=== PATIENT | female | born 1940 | race Caucasian/White ===

== ENCOUNTER 2017-02-27 12:18 | Inpatient (IN) | payer BC ==
--- NOTE | ~2017-02-27 | CN ---
Consultation Report [facility] [address] [place]. [address] NAME: CHERYL ANAYA : 40 STATUS : ADM Ronald PAT#: [id number] AGE: 76 ADM/REG DATE : 02/27/17 MR#: [id number] REPORT SERV DATE: 03/01/17 DICTATED BY: JESUS CHATMAN III DATE: 02/28/17 REPORT STATUS : Draft TRANSCRIBED BY: MODAngelita DATE: 02/28/17 CONSULTATION DATE OF CONSULTATION: 02/28/2017 REASON FOR CONSULTATION: Anemia. HISTORY OF PRESENT ILLNESS: Ms. Anaya is a 76-year-old female with a sudden onset of profound fatigue and dizziness and weakness. She presented to the emergency department and was found to have a new anemia with a hemoglobin of around 6.4. She was admitted for further workup and care. Her symptoms have been ongoing for just less than one day. She has not had symptoms like this before. She is now feeling better post-transfusion. She has no prior bleeding history or history of anemia. PAST MEDICAL HISTORY: 1. Hypertension. 2. Diabetes. 3. Hyperlipidemia. FAMILY HISTORY: Negative for any heart disease or blood disorder that she is aware of. SOCIAL HISTORY: She does live alone. There is no current tobacco or alcohol abuse. HOME MEDICATION LIST: Reviewed and per the home med list. ALLERGIES: THERE ARE NO KNOWN DRUG ALLERGIES. REVIEW OF SYSTEMS: A comprehensive review of systems was performed and is negative unless noted in the HPI. PHYSICAL EXAMINATION: VITAL SIGNS: Blood pressure is 117/95, temperature is 97.5, pulse is 72, and respiratory rate is 23. GENERAL: This is a well-developed, a well-nourished female in no acute distress. EYES: Pupils are round and reactive to light with mild icterus. NECK: Supple with no masses or thyroid enlargement. No JVD. CARDIOVASCULAR: Regular rate and rhythm with no audible murmurs, gallops, or rubs. LUNGS: Clear to auscultation bilaterally with normal respiratory effort. ABDOMEN: Soft, nondistended, nontender with no noted hepatosplenomegaly. SKIN: Warm and dry with no jaundice noted. LYMPHATIC: Negative for any cervical, supraclavicular or infraclavicular, or axillary lymphadenopathy. PSYCH: She is alert and oriented, and comprehends our conversation with normal judgment and affect. Consultation Report [facility] [address] [place]. [address] NAME: CHERYL ANAYA : 40 STATUS : ADM Ronald PAT#: [id number] AGE: 76 ADM/REG DATE : 02/27/17 MR#: [id number] REPORT SERV DATE: 03/01/17 DICTATED BY: JESUS CHATMAN III DATE: 02/28/17 REPORT STATUS : Draft TRANSCRIBED BY: MODL DATE: 02/28/17 LABORATORY DATA: Her admission labs were reviewed. Her CBC did improve from 5.8 to 8.8 after transfusion. Her MCV is quite high. Her white blood cell count is elevated. Her chemistry revealed an elevated total bilirubin at 2.8, and LDH was also elevated at 778. Her peripheral smear was personally reviewed. The red blood cells, they were microcytic and spherocytes present for the majority of the cells. There were some normochromic normocytic cells present though. They were 1+ and rare fragments. Her reticulocyte count was quite elevated in the 10% to 15% range with nucleated red blood cells. White blood cells had hypersegmented neutrophils, platelets had normal morphology. 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 We will start her on folic acid at 5 mg daily. Also start prednisone at 1 mg/kg. We will check PNH. We will continue to follow her while she is an inpatient and arrange followup upon discharge. CARMEN/JESSICA Jesus Chatman III, M.D. / [id number] CC: Stephanie Goldsmith M.D.
--- NOTE | ~2017-02-27 | HP ---
History And Physical [place] [id number] [facility] [address]. [address] NAME: CHERYL ANAYA : 40 STATUS : ADM Ronald PAT#: [id number] AGE: 76 ADM/REG DATE : 02/27/17 MR#: [id number] REPORT SERV DATE: 02/28/17 DICTATED BY: MARLO GIANG DATE: 02/27/17 REPORT STATUS : Draft TRANSCRIBED BY: MODAngelita DATE: 02/27/17 DATE OF ADMISSION: 02/27/2017 TIME: 08:30 p.m. HISTORY: The patient is a 76-year-old female patient of Dr. Charmaine Ewing'jesús with chronic diagnoses of DM type 2 requiring insulin, hypertension, hypercholesterolemia, who presented to the ER late this morning with complaints of dizziness, shortness of breath, and fatigue onset as of today. She has not recall these symptoms yesterday, but is fairly sedentary. She has noted no nausea, vomiting, fever, chills, abdominal pain, cramping, melena, or bright red blood per rectum. She has had no chest pain. No palpitations. No recent medicine changes. She uses no non-steroidal other than aspirin and does not take Plavix or similar anti-platelet drugs. She was last seen in the office on 12/24/2016, and at that time, had a BUN and creatinine of 17 and 0.76 with a potassium of 3.5, hemoglobin A1c 6.6, H and H of 14.3 and 40.8 with a white count of 9800, and MCV of 82.6 (see labs below). 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 No history of GI bleeding, dyspepsia, or anemia. REVIEW OF SYSTEMS: Negative for weight loss, dyspepsia, anorexia. PHYSICAL EXAMINATION: VITAL SIGNS: Afebrile, BP initially 192/81, recheck 140/80 by me, pulse 84 and regular. GENERAL: The patient is pale but alert and oriented to person, place, and time. Comfortable. CHEST: Clear bilaterally anteriorly and posteriorly. CV: Regular rate and rhythm with no murmurs, gallops, or rubs. ABDOMEN: Soft, mildly protuberant but nontender with normal bowel sounds. No organomegaly. RECTAL: Per ER, heme negative. NEUROLOGIC: Nonfocal. LABORATORY DATA: Peripheral CBC shows marked abnormalities in both red cell and white cell lines. White count is 19,000 with 65% segs, 3% bands, 22% lymphocytes, H and H 6.4 and 19.4 with macrocytosis. MCV of 121.3. MCH of 40, MCHC of 33, RDW elevated at 23.9, platelet count 344,000. Manual differential shows macrocytosis polychromasia, some mild basophilic stippling, and adequate platelets. I called hematology lab and asked them to review the slides specifically for schistocytes or other signs of hemolysis. It was reported to me after careful review that there were no schistocytes and no evidence of hemolysis with adequate platelets and findings as outlined above. Electrolytes: Sodium 143, potassium 2.5, chloride 104, bicarb 27, BUN and creatinine 31 and 0.9, magnesium 2.4, (40 mEq of potassium given in the ER). No followup potassium as of yet. D-dimer was abnormal at 2.12, though not unexpected with gross hematological abnormalities, PT and PTT within normal limits. A CTA of the chest was done in the ER due to her abnormal D-dimer. This was negative for pulmonary emboli or other pathology. EKG normal sinus rhythm with no ST elevation. History And Physical [address] [address] NAME: CHERYL ANAYA : 40 STATUS : ADM Ronald PAT#: [id number] AGE: 76 ADM/REG DATE : 02/27/17 MR#: [id number] REPORT SERV DATE: 02/28/17 DICTATED BY: MARLO GIANG DATE: 02/27/17 REPORT STATUS : Draft TRANSCRIBED BY: MODL DATE: 02/27/17 IMPRESSION: 1. Profound macrocytic anemia with high red cell distribution width. Possibilities include gastrointestinal blood loss with early red cells migrating from bone marrow versus other causes of microcytic anemia. Her elevated BUN suggests occult gastrointestinal blood loss. There is no evidence of such at least currently with heme testing in the ER. There is also no evidence of TTP or hemolysis. 2. Hypokalemia, replete to 40 mEq in the ER, needs follow up, on HCTZ. 3. Diabetes mellitus, type 2, requiring insulin, stable. 4. Hypertension, elevated initially, but not an issue currently. PLAN: The patient has been admitted. Transfusion of two units is proceeding. H and H will be followed closely with first H and H at two hours after second unit complete with further blood replacement if needed. Potassium followup needed with further repletement as indicated. Level [address] insulin in place along with her usual insulin. Regular diet tonight with continued Hemoccult testing. Unless we can see occult GI blood loss documented, we will hold on GI consultation, deferred to Dr. Ewing. Losartan HCT, and amlodipine will be held until and unless needed. Further evaluation will be based on her initial response to red cell replacement and potassium replacement. I discussed the situation in detail with the patient, and will detail Dr. Ewing in the morning, who will assume her care from their side. CC/MODL Marlo Giang M.D. / [id number] CC: Stephanie Goldsmith M.D.
[~2017-02-27 12:18] MED LIST: ADVAIR; ASAB PO; DIABETA5 PO; DIOVAN HC2 PO; DITRO5 PO; NORV5 PO; ZOCOR40 PO
[2017-02-27] MEDS ORDERED: ZOCOR40 PO (12:58)
[2017-02-27] MEDS ORDERED: TOUJEO SC (12:59)
[2017-02-27] MEDS ORDERED: DITRO5 PO (13:00)
[2017-02-27] MEDS ORDERED: ZANAFLEX2 MG PO (13:00)
[2017-02-27] MEDS ORDERED: HYZAAR 100/25 T1 TAB PO (13:01)
[2017-02-27] MEDS ORDERED: NORV10 PO (13:01)
[2017-02-27] MEDS ORDERED: ASAB PO (13:03)
[2017-02-27 13:19] LABS: BASOPHILS 0.3 %; BASOPHILS ABSOLUTE 0.05 10/3/uL (0.0-0.16); EOSINOPHILS 2.6 %; IMMATURE GRANULOCYTES 0.8 %; LYMPHOCYTES 22.3 %; LYMPHOCYTES ABSOLUTE 4.25 10/3/uL (0.67-4.30); MEAN PLATELET VOLUME 10.4 fL (9.2-13.0); MONOCYTES 5.2 %; MONOCYTES ABSOLUTE 0.99 10/3/uL (0.21-1.20); NEUTROPHILS 68.8 %; NEUTROPHILS ABSOLUTE 13.09 10/3/uL (2.02-8.40); NUCLEATED RED BLOOD CELLS 6.7 /100WBC (0-0)
[2017-02-27 13:20] LABS: INTERNATIONAL NORMAL RATI 1.1 UNITS (-); PARTIAL THROMBO TIME 23.2 SEC (22.5-37.2); PROTIME (NOT ORD) 13.8 SEC (12.0-14.5)
[2017-02-27 13:23] LABS: D-DIMER QUANTITATIVE 2.12 ug/mLFEU (< 0.50)
[2017-02-27 13:26] LABS: ER CBC TAT 0 Hrs 19 Mins; HEMATOCRIT 19.4 % (36.0-48.0); HEMOGLOBIN 6.4 g/dL (12.0-16.0); MEAN CORPUSCULAR VOLUME 121.3 fL (80-100); PLATELET COUNT 344 10/3/uL (150-400); RBC DISTRIBUTION WIDTH 23.9 % (12.0-16.0)
[2017-02-27 13:27] LABS: IMMATURE GRANULOCYTES ABSOLUTE 0.15 10/3/uL (0.0-0.11); MANUAL DIFF NO %
[2017-02-27 13:30] LABS: CALCIUM, SERUM 9.2 MG/DL (8.5-10.4); CHEST PAIN PROFILE TAT 0 Hrs 23 Mins; CHLORIDE, SERUM 104 MMOL/L (96-112); CO2 (CARBON DIOXIDE) 27 MMOL/L (24-34); CREATININE 0.91 MG/DL (0.55-1.02); GFR AFRICAN AMERICAN 71 ML/MIN (>=60); GFR NON AFRICAN AMERICAN 61 ML/MIN (>=60); SODIUM, SERUM 143 MMOL/L (135-148); TROPONIN I <0.02 NG/ML (<0.05)
[2017-02-27 13:31] LABS: BAND NEUTROPHILS 3 %; BASOPHILS 1 %; BASOPHILS ABSOLUTE (CALC) 0.19 10/3/uL (0.0-0.16); BUN (BLOOD UREA NITROGEN) 31 MG/DL (6-23); EOSINOPHILS 6 %; EOSINOPHILS ABSOLUTE (CALC) 1.14 10/3/uL (0.0-0.53); ER DIFF TAT 0 Hrs 24 Mins; GLUCOSE, SERUM 124 MG/DL (60-99); LYMPHOCYTES 22 %; LYMPHOCYTES ABSOLUTE (CALC) 4.18 10/3/uL (0.67-4.30); MACROCYTES 4+ (>50/OIF) (0-5/OIF); MONOCYTES 3 %; MONOCYTES ABSOLUTE (CALC) 0.57 10/3/uL (0.21-1.20); NEUTROPHILS ABSOLUTE (CALC) 12.92 10/3/uL (2.02-8.40); PLATELET ESTIMATE ADQ (ADEQUATE); POTASSIUM, SERUM 2.5 MMOL/L (3.5-5.3); SEGMENTED NEUTROPHIL (0) 65 %; TOTAL NUCLEATED CELLS 100
[2017-02-27 13:32] LABS: POLYCHROMASIA 2+ (5-10/OIF) (0-1/OIF)
[2017-02-27 13:33] LABS: BASOPHILIC STIPPLING 1+ (2-5/OIF) (0-1/OIF)
[2017-02-27 21:42] LABS: BUN (BLOOD UREA NITROGEN) 26 MG/DL (6-23); CALCIUM, SERUM 8.2 MG/DL (8.5-10.4); CHLORIDE, SERUM 107 MMOL/L (96-112); CO2 (CARBON DIOXIDE) 26 MMOL/L (24-34); GFR AFRICAN AMERICAN 83 ML/MIN (>=60); GFR NON AFRICAN AMERICAN 72 ML/MIN (>=60); GLUCOSE, SERUM 132 MG/DL (60-99); POTASSIUM, SERUM 2.7 MMOL/L (3.5-5.3); SODIUM, SERUM 143 MMOL/L (135-148)
[2017-02-27 21:43] LABS: HEMATOCRIT 18.1 % (36.0-48.0); HEMOGLOBIN 5.8 g/dL (12.0-16.0)
[2017-02-28 07:39] LABS: BASOPHILS 0.1 %; BASOPHILS ABSOLUTE 0.02 10/3/uL (0.0-0.16); EOSINOPHILS 2.1 %; EOSINOPHILS ABSOLUTE 0.33 10/3/uL (0.0-0.53); IMMATURE GRANULOCYTES 0.7 %; IMMATURE GRANULOCYTES ABSOLUTE 0.11 10/3/uL (0.0-0.11); LYMPHOCYTES 20.6 %; LYMPHOCYTES ABSOLUTE 3.16 10/3/uL (0.67-4.30); MEAN CORPUS HGB CONC 33.7 g/dL (32.0-36.0); MONOCYTES 5.8 %; MONOCYTES ABSOLUTE 0.89 10/3/uL (0.21-1.20); NEUTROPHILS 70.7 %; NEUTROPHILS ABSOLUTE 10.85 10/3/uL (2.02-8.40); NUCLEATED RED BLOOD CELLS 3.9 /100WBC (0-0); PLATELET COUNT 250 10/3/uL (150-400); RBC DISTRIBUTION WIDTH 27.7 % (12.0-16.0); WHITE BLOOD CELLS 15.4 10/3/uL (4.5-10.5)
[2017-02-28 07:40] LABS: HEMATOCRIT 26.1 % (36.0-48.0); HEMOGLOBIN 8.8 g/dL (12.0-16.0); MANUAL DIFF NO %; MEAN CORPUSCULAR HEMOGLOB 35.9 pg (26.0-34.0); MEAN CORPUSCULAR VOLUME 106.5 fL (80-100); RED CELL COUNT 2.45 10/6/uL (4.0-5.6)
[2017-02-28 07:43] LABS: A/G RATIO 1.2 (0.7-1.9); ALBUMIN 3.6 G/DL (3.5-5.0); ALKALINE PHOSPHATASE 74 U/L (45-117); BUN (BLOOD UREA NITROGEN) 25 MG/DL (6-23); CALCIUM, SERUM 8.5 MG/DL (8.5-10.4); CHLORIDE, SERUM 111 MMOL/L (96-112); CO2 (CARBON DIOXIDE) 25 MMOL/L (24-34); CREATININE 0.74 MG/DL (0.55-1.02); GFR AFRICAN AMERICAN 91 ML/MIN (>=60); GFR NON AFRICAN AMERICAN 79 ML/MIN (>=60); GLUCOSE, SERUM 61 MG/DL (60-99); POTASSIUM, SERUM 3.3 MMOL/L (3.5-5.3); SGOT(AST) 67 U/L (5-40); SGPT(ALT) 33 U/L (5-65); SODIUM, SERUM 145 MMOL/L (135-148); TOTAL BILIRUBIN 2.8 MG/DL (0-1.2); TOTAL PROTEIN 6.6 G/DL (6.0-8.5)
[2017-02-28 08:14] LABS: MACROCYTES 1+ (5-10/OIF) (0-5/OIF); POLYCHROMASIA 2+ (5-10/OIF) (0-1/OIF)
[2017-02-28 08:15] LABS: PLATELET ESTIMATE ADQ (ADEQUATE)
[2017-02-28 16:55] LABS: HEMATOCRIT 34.8 % (36.0-48.0)
[2017-03-01 08:22] LABS: BASOPHILS 0.1 %; BASOPHILS ABSOLUTE 0.02 10/3/uL (0.0-0.16); EOSINOPHILS 4.2 %; EOSINOPHILS ABSOLUTE 0.61 10/3/uL (0.0-0.53); HEMATOCRIT 32.3 % (36.0-48.0); IMMATURE GRANULOCYTES 0.4 %; IMMATURE GRANULOCYTES ABSOLUTE 0.06 10/3/uL (0.0-0.11); LYMPHOCYTES 29.3 %; LYMPHOCYTES ABSOLUTE 4.24 10/3/uL (0.67-4.30); MEAN CORPUS HGB CONC 34.1 g/dL (32.0-36.0); MEAN CORPUSCULAR HEMOGLOB 34.8 pg (26.0-34.0); MEAN PLATELET VOLUME 10.5 fL (9.2-13.0); MONOCYTES 5.1 %; MONOCYTES ABSOLUTE 0.74 10/3/uL (0.21-1.20); NEUTROPHILS 60.9 %; NEUTROPHILS ABSOLUTE 8.81 10/3/uL (2.02-8.40); NUCLEATED RED BLOOD CELLS 0.6 /100WBC (0-0); PLATELET COUNT 246 10/3/uL (150-400); RBC DISTRIBUTION WIDTH 26.1 % (12.0-16.0); WHITE BLOOD CELLS 14.5 10/3/uL (4.5-10.5)
[2017-03-01 08:23] LABS: MANUAL DIFF NO %; MEAN CORPUSCULAR VOLUME 102.2 fL (80-100); RED CELL COUNT 3.16 10/6/uL (4.0-5.6)
[2017-03-01 08:29] LABS: A/G RATIO 1.1 (0.7-1.9); ALBUMIN 3.7 G/DL (3.5-5.0); ALKALINE PHOSPHATASE 75 U/L (45-117); CHLORIDE, SERUM 107 MMOL/L (96-112); CO2 (CARBON DIOXIDE) 25 MMOL/L (24-34); CREATININE 0.77 MG/DL (0.55-1.02); GFR AFRICAN AMERICAN 87 ML/MIN (>=60); GFR NON AFRICAN AMERICAN 75 ML/MIN (>=60); GLOBULIN 3.3 G/DL (2.5-4.1); GLUCOSE, SERUM 68 MG/DL (60-99); POTASSIUM, SERUM 3.2 MMOL/L (3.5-5.3); SGOT(AST) 38 U/L (5-40); SGPT(ALT) 27 U/L (5-65); SODIUM, SERUM 142 MMOL/L (135-148); TOTAL BILIRUBIN 2.5 MG/DL (0-1.2)
[2017-03-01 08:33] LABS: BUN (BLOOD UREA NITROGEN) 20 MG/DL (6-23); CALCIUM, SERUM 8.7 MG/DL (8.5-10.4)
[2017-03-01 08:34] LABS: PLATELET ESTIMATE ADQ (ADEQUATE)
[2017-03-01 08:35] LABS: MACROCYTES 1+ (5-10/OIF) (0-5/OIF)
[2017-03-01 08:37] LABS: POLYCHROMASIA 1+ (2-5/OIF) (0-1/OIF)
[2017-03-01] MEDS ORDERED: P20 PO (09:24)
[2017-03-01] MEDS ORDERED: FOLIC PO (09:25)
[2017-06-04] MEDS ORDERED: ZOCOR40 PO (10:30)
[2017-06-04] MEDS ORDERED: NORV10 PO (10:31)
[2017-06-04] MEDS ORDERED: HYZAAR 100/25 T1 TAB PO (10:31)
[2017-06-04] MEDS ORDERED: TOUJEO SC (10:31)
[2017-06-04] MEDS ORDERED: ASAB PO ×2 (10:32→10:33)
[2017-06-04] MEDS ORDERED: DITRO5 PO (10:32)
[2017-06-04] MEDS ORDERED: ALEVE220 MG PO (10:34)
[2017-06-04] MEDS ORDERED: ADVIL PO (10:34)
[2017-06-04] MEDS ORDERED: ZANAFLEX2 MG PO (10:35)
[2017-06-04] MEDS ORDERED: NORCO1 TA2 PO (10:36)
[2017-06-04] MEDS ORDERED: FOLIC PO (10:36)
[2017-06-04] MEDS ORDERED: P20 PO (10:42)
[2017-06-07] MEDS ORDERED: NOVOPEN SC (10:01)
== END 2017-03-01 09:59 | disposition home or self-care (01) | DRG 810 ==
LOC: ER 12:18 → CDU1 16:51 → CDU2 18:39
PROVIDERS: Emergency Medicine; Internal Medicine
PROC: 30233N1 Transfusion of Nonautologous Red Blood Cells into Peripheral Vein, Percutaneous Approach (ICD-10-PCS; principal; 2017-02-27)
DX: D59.1 Other autoimmune hemolytic anemias (principal); E11.9 Type 2 diabetes mellitus without complications; I10 Essential (primary) hypertension; E87.6 Hypokalemia; Z79.4 Long term (current) use of insulin; E78.5 Hyperlipidemia, unspecified; E78.00 Pure hypercholesterolemia, unspecified
CPT/HCPCS: 36415; 71020; 71275; 80048; 80053; 82272; 82607; 82962; 83615; 83735; 83880; 84132; 84443; 84484; 85014; 85018; 85025; 85379; 85610; 85730; 86850; 86870; 86880; 86900; 86901; 86904; 86920; 86922; 88184; 88185; 93005; 99285; A9270-GY; G0378; P9016; Q9967